=== PATIENT | female | born 1965 | race Two or more races ===

== ENCOUNTER 2021-06-07 09:20 | Day surgery (SDC) | payer OTHER | END 2021-06-07 17:15 | disposition home or self-care (01) | LOC: CIR.AMB 09:20 | PROVIDERS: ATTEND Obstetrics & Gynecology | DX: R93.5 Abnormal findings on diagnostic imaging of other abdominal regions, including retroperitoneum (principal); D25.1 Intramural leiomyoma of uterus; Z85.12 Personal history of malignant neoplasm of trachea ==